=== PATIENT | male | born 1990 | race Caucasian/White ===

== ENCOUNTER 2023-10-10 18:06 | Inpatient (IN) ==
[2023-10-10 19:44] LABS: ABS Basophils 0.1 10^3/uL (0.0-0.1); ABS Lymphocytes 1.4 10^3/uL (1.0-4.8); ABS Monocytes 0.5 10^3/uL (0.0-1.1); ABS Neutrophils 16.7 10^3/uL (1.5-7.6); ABS Nucleated RBC 0.01 10^3/ul; Hematocrit 41.9 % (38-53); Hemoglobin 14.1 g/dL (13.2-16.3); Lymphocyte % 7.5 %; Mean Corpuscular Hemoglobin 29.8 pg (27-33); Mean Corpuscular Hgb Conc 33.7 g/dL (31-36); Mean Corpuscular Volume 88.6 fL (80-97); Mean Platelet Volume 6.8 fL (7.5-11.2); Nucleated Red Blood Cells % 0.1 %/100WBC (0.0-0.8); Platelet Count 415 10^3/uL (150-450); Red Blood Count 4.73 10^6/uL (4.06-5.63); Red Cell Distribution Width 13.3 % (12-17); White Blood Count 18.6 10^3/uL (3.6-10.2)
[2023-10-10 20:11] LABS: ALT 58 U/L (7-52); AST 79 U/L (13-39); Albumin 3.7 g/dL (3.2-5.2); Albumin/Globulin Ratio 1.2 (1-3); Alkaline Phosphatase 147 U/L (35-149); Anion Gap 10 mmol/L (2-16); Blood Urea Nitrogen 27 mg/dL (6-24); C Reactive Protein 98.89 mg/L (<8.01); CO2 Carbon Dioxide 28 mmol/L (22-32); Calcium 8.9 mg/dL (8.6-10.3); Chloride 101 mmol/L (101-111); Creatinine, Serum 0.94 mg/dL (0.67-1.17); Globulin 3.1 g/dL (2-4); Glucose 130 mg/dL (70-100); Lipase 16 U/L (11.0-82.0); Potassium 4.2 mmol/L (3.5-5.0); Sodium 139 mmol/L (135-145); Total Bilirubin 0.4 mg/dL (0.2-1.0); Total Protein 6.8 g/dL (6.4-8.9); eGFR CKD-EPI 109.1 (>60)
[2023-10-10] MEDS ORDERED: Lactated Ringers 1000 ml BAG 1,000 ML IV ONE ×2 (20:19→21:46)
[2023-10-10 20:27] LABS: Acetaminophen < 15 mcg/mL; Alcohol, S < 13 mg/dL (<13); Salicylate < 2.50 mg/dL (<30)
[2023-10-10] MEDS ORDERED: cefTRIAXone 2 GM ADDV.VIAL 2 GM in NS 0.9% 100 ml BAG 100 ML IV ONE (21:43)
[2023-10-10] MEDS ORDERED: Azithromycin 500 mg/250 ml NS 500 MG/250 ML BAG IVPB ONE (21:43)
[2023-10-10] MEDS ORDERED: Iohexol 350 (CONTRAST) 500 ML MDV IV ONE (21:54)
[2023-10-10] MEDS ORDERED: cefTRIAXone 2 gm/50 mL D5W 2 GM/50 ML BAG IV ONE (23:15)
[2023-10-10 23:25] LABS: Urine Bacteria Absent (Absent); Urine Red Blood Cell Trace(0-2/hpf) (Absent); Urine Squamous Epithelial Cell Present (Absent); Urine White Blood Cell Trace(0-5/hpf) (Absent)
[2023-10-10 23:28] LABS: Urine Appearance Clear; Urine Bilirubin Negative (Negative); Urine Blood Negative (Negative); Urine Color Yellow; Urine Glucose Negative (Negative); Urine Ketones Negative (Negative); Urine Nitrite Negative (Negative); Urine Protein Negative (Negative); Urine Specific Gravity 1.021 (1.002-1.030); Urine Urobilinogen Negative (Negative)
[2023-10-10] MEDS ORDERED: Acetaminophen IV 1 GM/100ML 1,000 MG/100 ML BAG IV ONE (23:40)
[2023-10-10] MEDS ORDERED: Ondansetron 4 mg VIAL 2 MG/ML 2 ml VIAL IV ONE (23:57)
[2023-10-11 00:15] LABS: Urine Hydrocodone Screen None Detected (None Detect)
[2023-10-11 00:16] LABS: Urine Buprenorphine Screen None Detected (None Detect); Urine Cannabinoids Screen None Detected (None Detect); Urine Opiates Screen None Detected (None Detect)
[2023-10-11 00:17] LABS: Urine Benzodiazepine Screen Presumptive Positive (None Detect); Urine Fentanyl Screen Presumptive Positive (None Detect)
[2023-10-11 03:06] LABS: Erythrocyte Sed Rate 27 mm/Hr (0-14)
[2023-10-11] MEDS ORDERED: Ondansetron 4 mg VIAL 2 MG/ML 2 ml VIAL IV PRN (04:19)
[2023-10-11 05:51] LABS: ABS Basophils 0.1 10^3/uL (0.0-0.1); ABS Eosinophils 0.1 10^3/uL (0.0-0.5); ABS Lymphocytes 2.7 10^3/uL (1.0-4.8); ABS Monocytes 0.7 10^3/uL (0.0-1.1); ABS Neutrophils 17.7 10^3/uL (1.5-7.6); ABS Nucleated RBC 0.03 10^3/ul; Eosinophil % 0.3 %; Hematocrit 38.6 % (38-53); Hemoglobin 13.1 g/dL (13.2-16.3); Lymphocyte % 12.6 %; Mean Corpuscular Hemoglobin 29.6 pg (27-33); Mean Corpuscular Hgb Conc 33.9 g/dL (31-36); Mean Corpuscular Volume 87.5 fL (80-97); Mean Platelet Volume 6.8 fL (7.5-11.2); Nucleated Red Blood Cells % 0.1 %/100WBC (0.0-0.8); Platelet Count 398 10^3/uL (150-450); Red Blood Count 4.41 10^6/uL (4.06-5.63); Red Cell Distribution Width 13.5 % (12-17); White Blood Count 21.2 10^3/uL (3.6-10.2)
[2023-10-11 06:18] LABS: Albumin 3.2 g/dL (3.2-5.2); Albumin/Globulin Ratio 1.1 (1-3); C Reactive Protein 175.49 mg/L (<8.01); Calcium 8.5 mg/dL (8.6-10.3); Creatinine, Serum 0.88 mg/dL (0.67-1.17); Globulin 2.9 g/dL (2-4); Potassium 4.2 mmol/L (3.5-5.0); Total Bilirubin 0.4 mg/dL (0.2-1.0); Total Protein 6.1 g/dL (6.4-8.9); eGFR CKD-EPI 115.7 (>60)
[2023-10-11] MEDS ORDERED: Vancomycin 1,250 MG in NS 0.9% 250 ml 250 ML IVPB ONE (07:32)
[2023-10-11] MEDS ORDERED: Vancomycin per Pharmacy 1 EA NOTE FOLLOW UP PRN (07:45)
[2023-10-11] MEDS ORDERED: Al Hydrox/Mg Hydrox/Simet LIQ 30 ML UDC PO PRN (09:22)
[2023-10-11] MEDS ORDERED: Nicotine GUM 4MG FRUIT FLAVOR PO PRN (09:22)
[2023-10-11] MEDS: Nicotine PATCH 14 MG/24 HR PATCH TRANSDERM SCH (11:08)
[2023-10-11] MEDS ORDERED: Ondansetron ODT 4 mg TAB 4 MG TAB SL PRN (15:25)
[2023-10-11] MEDS ORDERED: Azithromycin 500 mg/250 ml NS 500 MG/250 ML BAG IVPB SCH (21:00)
[2023-10-11] MEDS ORDERED: cefTRIAXone 1 gm/50 mL D5W 1 GM/50 ML BAG IV SCH (23:00)
[2023-10-12] MEDS: Nicotine PATCH 14 MG/24 HR PATCH TRANSDERM SCH (08:40)
[2023-10-13] MEDS: Nicotine PATCH 14 MG/24 HR PATCH TRANSDERM SCH (09:11)
[2023-10-13] MEDS ORDERED: Albuterol HFA INHALER 8 gm MDI INH PRN (10:15)
[2023-10-13] MEDS ORDERED: Buprenorphine 2 mg SL TAB PO SCH (11:00)
[2023-10-14 08:12] LABS: HDL Cholesterol 28.1 mg/dL
[2023-10-14 11:36] LABS: Hepatitis A Ab IgM Negative (Negative); Hepatitis B Core IgM Nonreactive (Nonreactive)
[2023-10-14 13:16] LABS: Hepatitis B Surface Antigen Nonreactive (Nonreactive)
[2023-10-14 13:43] LABS: Hepatitis C Antibody Reactive (Negative)
[2023-10-15 08:39] VITALS: BP 116/72
== END 2023-10-15 14:35 | disposition home or self-care (01) | DRG 753 ==
LOC: BSU 18:06 → ED 18:06 → EDHOLD 18:06 → SUATTDRO 10-11 06:11 → EDHOLD 10-11 09:22 → BSU 10-11 10:03 → EDHOLD 10-11 10:06 → BSU 10-11 10:17
PROVIDERS: ADMIT Psychiatry & Neurology Psychiatry; ATTEND Psychiatry & Neurology Psychiatry

== ENCOUNTER 2024-04-13 16:53 | Inpatient (IN) ==
[2024-04-13 17:42] LABS: ABS Monocytes 0.5 10^3/uL (0.0-1.1); ABS Neutrophils 6.2 10^3/uL (1.5-7.6); Eosinophil % 0.5 %; Hematocrit 41.5 % (38-53); Hemoglobin 14.1 g/dL (13.2-16.3); Lymphocyte % 22.8 %; Mean Corpuscular Hemoglobin 29.3 pg (27-33); Mean Corpuscular Volume 86.3 fL (80-97); Mean Platelet Volume 7.5 fL (7.5-11.2); Platelet Count 309 10^3/uL (150-450); Red Blood Count 4.81 10^6/uL (4.06-5.63); Red Cell Distribution Width 13.4 % (12-17); White Blood Count 8.8 10^3/uL (3.6-10.2)
[2024-04-13] MEDS: Lactated Ringers 1000 ml BAG 1,000 ML IV ONE ×3 (18:28→22:37)
[2024-04-13 18:30] LABS: TSH Ultra Thyroid Stim Horm 0.65 mcIU/mL (0.34-5.60)
[2024-04-13 18:43] LABS: ALT 20 U/L (7-52); AST 21 U/L (13-39); Acetaminophen < 15 mcg/mL; Albumin 4.2 g/dL (3.2-5.2); Albumin/Globulin Ratio 1.6 (1-3); Alcohol, S < 13 mg/dL (<13); Alkaline Phosphatase 135 U/L (35-149); Anion Gap 6 mmol/L (2-16); Blood Urea Nitrogen 13 mg/dL (6-24); CO2 Carbon Dioxide 30 mmol/L (22-32); Calcium 9.1 mg/dL (8.6-10.3); Chloride 101 mmol/L (101-111); Creatinine, Serum 0.96 mg/dL (0.67-1.17); Globulin 2.7 g/dL (2-4); Glucose 109 mg/dL (70-100); Potassium 4.9 mmol/L (3.5-5.0); Salicylate < 2.50 mg/dL (<30); Sodium 137 mmol/L (135-145); Total Bilirubin 0.3 mg/dL (0.2-1.0); Total Protein 6.9 g/dL (6.4-8.9); eGFR CKD-EPI 105.7 (>60)
[2024-04-13 22:16] LABS: Urine Appearance Clear; Urine Bilirubin Negative (Negative); Urine Blood Negative (Negative); Urine Color Light-Yellow; Urine Glucose Negative (Negative); Urine Ketones Negative (Negative); Urine Nitrite Negative (Negative); Urine Protein Trace (Negative); Urine Specific Gravity 1.019 (1.002-1.030); Urine Urobilinogen Negative (Negative)
[2024-04-13 22:35] LABS: Creatine Kinase 76 U/L (10-223)
[2024-04-13 23:00] LABS: Urine Benzodiazepine Screen None Detected (None Detect); Urine Cannabinoids Screen Presumptive Positive (None Detect); Urine Opiates Screen Presumptive Positive (None Detect)
[2024-04-14] MEDS: Lactated Ringers 1000 ml BAG 1,000 ML IV SCH (04:02)
[2024-04-14] MEDS ORDERED: Al Hydrox/Mg Hydrox/Simet LIQ 30 ML UDC PO PRN (15:30)
[2024-04-15] MEDS ORDERED: Ondansetron ODT 4 mg TAB 4 MG TAB PO PRN (11:20)
[2024-04-20 08:51] VITALS: BP 98/55
== END 2024-04-20 13:26 | disposition home or self-care (01) | DRG 816 ==
LOC: ED 16:53 → EDHOLD 04-14 15:30 → BSU 04-14 16:50
PROVIDERS: ADMIT Psychiatry & Neurology Psychiatry; ATTEND Psychiatry & Neurology Psychiatry